=== PATIENT | female | born 1940 | race Caucasian/White ===

== ENCOUNTER 2016-12-10 10:54 | Day surgery (SDC) | payer MEDICARE, BC ==
[2016-12-03 09:25] LABS: HEMATOCRIT 38.1 % (36.0-48.0); HEMOGLOBIN 12.4 g/dL (12.0-16.0)
[2016-12-03 09:41] LABS: BUN (BLOOD UREA NITROGEN) 21 MG/DL (6-23); CALCIUM, SERUM 9.1 MG/DL (8.5-10.4); CHLORIDE, SERUM 103 MMOL/L (96-112); CO2 (CARBON DIOXIDE) 32 MMOL/L (24-34); CREATININE 1.15 MG/DL (0.55-1.02); GFR AFRICAN AMERICAN 54 ML/MIN (>=60); GFR NON AFRICAN AMERICAN 46 ML/MIN (>=60); GLUCOSE, SERUM 92 MG/DL (60-99); POTASSIUM, SERUM 3.8 MMOL/L (3.5-5.3); SODIUM, SERUM 144 MMOL/L (135-148)
--- NOTE | ~2016-12-10 | OP ---
Record Of Operation [facility] [address] [place]. [address] NAME: MOSES HUERTA : 40 STATUS : [place] [facility] [place] PAT#: [id number] AGE: 76 ADM/REG DATE : 12/10/16 MR#: [id number] REPORT SERV DATE: 12/10/16 DICTATED BY: KARL WOLFE III DATE: 12/10/16 REPORT STATUS : Draft TRANSCRIBED BY: MODL DATE: 12/10/16 DATE OF PROCEDURE: 12/10/2016 PREOPERATIVE DIAGNOSIS: Trigger finger of left long finger. POSTOPERATIVE DIAGNOSIS: Trigger finger of left long finger. SURGICAL PROCEDURE PERFORMED: Release of A1 levi, left long finger (trigger finger). SURGEON: Karl Wolfe M.D. [employer] CODING SPECIALIST: Zhanna. ANESTHESIA: IV sedation and local. COMPLICATIONS: None. ANTIBIOTICS: Ancef 2 g. TOURNIQUET TIME: 6 minutes. PROCEDURE IN DETAIL: The patient was brought to operating room, placed on the table in supine position. Pneumonic tourniquet was applied to the left upper extremity. Left upper extremity was prepped and draped in the usual sterile fashion. The patient was given IV propofol for sedation, it was then exsanguinated with a 4-inch Esmarch, tourniquet was inflated to 250 mmHg. Assuring good anesthesia, a transverse incision was made over the metacarpal head of the left long finger for approximately a centimeter. Dissection was carried down through the palmar fatty tissue. Heiss retractor was placed to the wound. The A1 levi was identified and released sharply with a #15 blade. The tendon was displaced to confirm it had been released. She was undermined slightly with a pair of tenotomy scissors as well. There was a lot of fluid in the tendon sheath. Irrigation was carried out. The wound was closed with interrupted 4-0 nylon, 5 mL of 0.5% Marcaine solution was injected for postoperative pain control. Sterile dressings were applied. Tourniquet was released after 6 minutes. The patient tolerated the procedure well and was brought to recovery in satisfactory condition. RAY/VANDANA Karl Wolfe III, M.D. [facility]#: [id number] / [id number] CC: Record Of Operation [address] [place]. [address] NAME: MOSES HUERTA : 40 STATUS : [place] [facility] PAT#: [id number] AGE: 76 ADM/REG DATE : 12/10/16 MR#: [id number] REPORT SERV DATE: 12/10/16 DICTATED BY: KARL WOLFE III DATE: 12/10/16 REPORT STATUS : Draft TRANSCRIBED BY: MODL DATE: 12/10/16 Becka Weber III, M.D.
[~2016-12-10 10:54] MED LIST: ALPHAGAN P0.1 % OPH; ASA; ASAB PO; B 12; CITRACAL PO; COMBIGAN0.2 MG/0.5 OP; CRESTOR10 PO; CYANO1000T PO; D3; EFFEXOR XR150 MG PO; EFFEXXR75 PO; FLEX; FLEX PO; FOLIC; FOLIC PO; LIPITOR10 PO; LISINOPRIL40 MG PO; MAGOX4; MAX25 PO; METHOTREXATE PO; MTX2.5 PO; MURO1282% OPH; NEUR100 PO; NORCO1 TA2 PO; NORCO1 TAB; NORV5 PO; OMEGA 3 FATTY ACIDS PO; PLAQ200B PO; PRILO PO; PRIN20 PO; PRINZIDE1 TAB PO; PROAIR HFA INH; REST15 PO; SIMPONI50 MG SC; SYSTANE OPH; SYSTANE ULTR OP; T PO; VIACTIV PO; VITAMIN B COMPLEX PO; VITAMIN D1000 UNI1 PO; VITAMIN D31000 UNIT PO; ZANTAC300 MG; ZANTAC300 MG PO; ZOL100 PO; [UNRECOGNIZED DRUG - OTHER] PO
== END 2016-12-10 23:59 | disposition home or self-care (01) ==
LOC: MSC 10:54
PROVIDERS: Orthopaedic Surgery
PROC: 0LN80ZZ Release Left Hand Tendon, Open Approach (ICD-10-PCS; principal; 2016-12-10 12:45)
DX: M65.332 Trigger finger, left middle finger (principal); I10 Essential (primary) hypertension; E78.00 Pure hypercholesterolemia, unspecified; M19.90 Unspecified osteoarthritis, unspecified site; M79.7 Fibromyalgia; K21.9 Gastro-esophageal reflux disease without esophagitis; F41.9 Anxiety disorder, unspecified; J45.909 Unspecified asthma, uncomplicated; F31.9 Bipolar disorder, unspecified; F32.9 Major depressive disorder, single episode, unspecified; M06.9 Rheumatoid arthritis, unspecified; G62.9 Polyneuropathy, unspecified; E16.2 Hypoglycemia, unspecified; Z88.5 Allergy status to narcotic agent; Z88.1 Allergy status to other antibiotic agents; Z79.899 Other long term (current) drug therapy; Z79.82 Long term (current) use of aspirin; Z98.41 Cataract extraction status, right eye; Z98.42 Cataract extraction status, left eye; Z98.890 Other specified postprocedural states; Z90.711 Acquired absence of uterus with remaining cervical stump
CPT/HCPCS: 80048; 82962; 85014; 85018; 93005; A9270-GY; J0690; J3010